=== PATIENT | male | born 2000 | race Caucasian/White ===

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

== ENCOUNTER 2019-09-22 06:18 | Emergency (ER) | payer SELFPAY ==
[~2019-09-22] VITALS: Ht 160 cm; Wt 65.0 kg
[~2019-09-22 06:18] MED LIST changes: +AMOX/K CLAV875 M1 PO
[2019-09-22 06:55] LABS: HEMATOCRIT 46.8 % (39.0-50.0); HEMOGLOBIN 15.8 g/dl (14.0-18.0); IMMATURE GRANULOCYTES 0.2 % (0.0-5.0); MEAN CELL VOLUME 84.3 fL CALC (80.0-100.0); MEAN CORPUSCULAR HGB 28.5 pG CALC (26.0-32.0); MEAN CORPUSCULAR HGB CONC 33.8 g/dL CAL (32.0-36.0); NEUT# 1.96 thou/uL (1.82-7.42); RED BLOOD COUNT 5.55 mill/uL (4.70-6.10); RED CELL DISTRI WIDTH 11.8 % (11.5-15.5)
[2019-09-22 07:13] LABS: ALBUMIN 4.9 g/dL (3.2-5.0); ALKALINE PHOSPHATASE 121 u/l (38-126); BUN 16 mg/dL (9-20); BUN/CREATININE RATIO 16 (12-20 (CALC)); CHLORIDE 104 mmol/l (95-108); CREATININE 0.9 mg/dL (0.7-1.3); GFR > 60 ML/MIN (>=60 (CALC)); GFR FOR AFR.AMER. > 60 ML/MIN (>=60 (CALC)); LIPASE 25 u/l (23-300); POTASSIUM 4.8 mmol/l (3.5-5.1); SGOT/AST 19 u/l (17-59); SODIUM 137 mmol/l (137-146); TOTAL PROTEIN 7.8 g/dL (6.3-8.2)
[2019-09-22 07:14] LABS: ANION GAP 12 (6-22 (CALC)); BILIRUBIN, TOTAL 0.8 mg/dL (0.0-1.4); CARBON DIOXIDE 26 mmol/l (22-30)
[2019-09-22 11:01] VITALS: BP 127/71
== END 2019-09-22 11:12 | disposition home or self-care (01) | DRG 313 ==
LOC: ED 06:18
DX: R07.89 Other chest pain (principal)

== ENCOUNTER 2024-04-11 11:12 | Emergency (ER) | payer SELFPAY ==
[~2024-04-11] VITALS: Ht 160 cm; Wt 58.9 kg
[2024-04-11] MEDS ORDERED: ONDANSETRON 4 MG/TAB ODT SL ONE (13:30)
[2024-04-11] MEDS ORDERED: ZOFRAN4 MG/TAB PO (13:37)
[2024-04-11] MEDS ORDERED: MEDDOSEPAK PO (13:37)
[2024-04-11] MEDS ORDERED: PROAIR HFA IN (13:37)
[2024-04-11 13:45] VITALS: BP 128/64
== END 2024-04-11 13:48 | disposition home or self-care (01) | DRG 195 ==
LOC: ED 11:12
DX: J10.1 Influenza due to other identified influenza virus with other respiratory manifestations (principal); Z20.822 Contact with and (suspected) exposure to COVID-19